=== PATIENT | female | born 1965 | race Caucasian/White ===

== ENCOUNTER 2024-01-07 14:28 | Emergency (ER) | payer BC, OTHER ==
[2024-01-07 16:28] LABS: BASOPHILS PERCENT AUTO 0.4 % (0.1-1.3); EOSINOPHILS ABSOLUTE AUTO 0.07 K/uL (0.00-0.40); EOSINOPHILS PERCENT AUTO 1.3 % (0.0-5.4); HEMATOCRIT 43.9 % (34.3-46.0); HEMOGLOBIN 14.9 g/dL (11.2-15.5); IMMATURE GRAN PERCENT AUTO 0.4 % (0.0-0.7); LYMPHOCYTES PERCENT AUTO 15.2 % (11.4-47.7); MEAN CORPUSCULAR HEMOGLOBIN 30.2 pg (31.6-35.5); MEAN CORPUSCULAR HGB CONC 33.9 g/dL (31.6-35.5); MONOCYTES PERCENT AUTO 9.5 % (3.3-12.6); NEUTROPHILS ABSOLUTE AUTO 3.84 K/uL (1.0-7.6); NEUTROPHILS PERCENT AUTO 73.2 % (40.0-78.1); PLATELET COUNT,PLT 192 K/uL (130-375); RED BLOOD CELL COUNT 4.93 M/uL (3.77-5.24); WHITE BLOOD CELL COUNT,WBC 5.3 K/uL (3.2-11.0)
[2024-01-07 16:28] LABS: INFLUENZA A NAA NEGATIVE (NEGATIVE); INFLUENZA B NAA NEGATIVE (NEGATIVE); RESPIRATORY SYNCYTIAL VIR NAA NEGATIVE (NEGATIVE)
[2024-01-07] MEDS: Ketorolac 30 MG/ML SDV IM ONE (16:28)
[2024-01-07 16:29] LABS: CORONAVIRUS COVID-19 NAA POSITIVE (NEGATIVE)
[2024-01-07 16:30] LABS: BASOPHILS ABSOLUTE AUTO 0.02 K/uL (0.00-0.10); IMMATURE GRAN ABSOLUTE AUTO 0.02 K/uL (0.00-0.23)
[2024-01-07 16:46] LABS: CALCIUM 9.4 mg/dL (8.5-10.1); CREATININE 1.1 mg/dL (0.6-1.0); EST CRCL DRUG DOSING (CG) 54.87 mL/min; POTASSIUM,K 3.8 mmol/L (3.6-5.2)
[2024-01-07 16:51] LABS: ANION GAP 9.8 mmol/L (5.0-14.0)
== END 2024-01-07 17:29 | disposition home or self-care (01) ==
LOC: JP.ED 14:28
DX: U07.1 COVID-19 (principal); I10 Essential (primary) hypertension; Z86.16 Personal history of COVID-19; Z91.048 Other nonmedicinal substance allergy status; Z90.710 Acquired absence of both cervix and uterus; Z79.899 Other long term (current) drug therapy
CPT/HCPCS: 0241U; 36415; 80048; 82550; 85025; 85379; 96372; 99283; J1885